=== PATIENT | female | born 1940 | race Asian ===

== ENCOUNTER 2019-12-08 18:06 | Emergency (ER) | payer OTHER, MEDICARE ==
[~2019-12-08] VITALS: Ht 157.5 cm; Wt 47.6 kg
[~2019-12-08 18:06] MED LIST: CALMAGZIN PO; ERGO400 PO; ESTR1; ESTRADIOL PATCH; HYDACE5 PO; IBUP600 PO; Keflex500 MG PO; PROG100; PROGESTERONE CREAM
[2019-12-08] MEDS ORDERED: CLIMARA1 EAC2 TD (19:07)
== END 2019-12-08 20:11 | disposition home or self-care (01) ==
LOC: ER 18:06
DX: S16.1XXA Strain of muscle, fascia and tendon at neck level, initial encounter (principal); M81.0 Age-related osteoporosis without current pathological fracture; Z79.899 Other long term (current) drug therapy; V89.2XXA Person injured in unspecified motor-vehicle accident, traffic, initial encounter
CPT/HCPCS: 72125; 99284-25